=== PATIENT | male | born 2000 | race Asian ===

== ENCOUNTER 2025-03-13 23:06 | Emergency (ER) | payer OTHER, SELFPAY ==
[2025-03-13 23:10] VITALS: BP 144/88
[2025-03-13 23:31] VITALS: BP 112/98
[2025-03-13] MEDS: PEPCID 40 MG PO (23:39)
[2025-03-13] MEDS: DECADRON 10 MG PO (23:39)
[2025-03-13] MEDS: NSS 1000 IV (23:57)
[2025-03-14] VITALS: BP 120/64
--- NOTE | 2025-03-14 00:25 | ED.GENMED ---
History of Present Illness
<Spencer Yu MD - Last Filed: 03/14/25 00:29>
General
Chief Complaint: Allergic Reaction
Time Seen by Provider: 03/13/25 23:22
<Garrick Moncada Jr., PA-C - Last Filed: 03/14/25 02:08>
General
Source: patient
Exam Limitations: none
Nursing documentation reviewed up to this point in time: agreed with
History of Present Illness
History of Present Illness:
24-year-old male presenting to the emergency department today with concerns of allergic reaction after eating pistachios. Took Benadryl as well as an EpiPen with some improvement of symptoms. Still does have ongoing rash denies any trouble
swallowing or breathing
Past History
<Spencer Yu MD - Last Filed: 03/14/25 00:29>
Past History
ED Past Medical History: Asthma
ED Past Surgical History: Other
Social History
Tobacco: Non-smoker
Alcohol: None
Drug: None
Personal: Single
Living: with family
Employment: Employed
Family History
Family History: Other
Review of Systems
<Garrick Moncada Jr., PA-C - Last Filed: 03/14/25 02:08>
Review of Systems
Allergies reviewed?: Yes
All Other Systems: ROS reviewed and negative except as documented in HPI and ROS
Phy Exam
<Garrick Moncada Jr., PA-C - Last Filed: 03/14/25 02:08>
Physical Exam
Physical Exam:
GENERAL: Alert , in no apparent distress
EYE: pupils equal and reactive
NECK: Supple, no significant adenopathy.
ENT: o/p clr, mmm.
CARDIAC: Regular rate and rhythm .
LUNGS: Clear breath sounds bilaterally, no acute respiratory distress, no wheezes/rales/rhonchi
ABDOMEN: Soft, without focal tenderness, no r/g, no cvat
NEUROLOGICAL: Alert and oriented, no focal neuro deficits
SKIN: Scattered hives of the upper extremities chest wall neck and face no involvement of the mucous membranes warm and dry, skin intact.
MUSCULOSKELETAL: No edema, well perfused.
PSYCH: Normal and appropriate interaction.
Course
<Spencer Yu MD - Last Filed: 03/14/25 00:29>
Orders/Labs/Results
Orders:
Orders
03/13/25 23:26
Dexamethasone [Decadron] 10 mg PO NOW STA
Famotidine [Pepcid] 40 mg PO NOW STA
03/13/25 23:35
Famotidine [Pepcid] 20 mg .ROUTE .STK-MED ONE
03/13/25 23:48
Electrocardiogram (*1) Urgent
Reason for Study: Other
Other Reason for Exam: Possible Sepsis
EKG- Treatment ONCE
03/13/25 23:49
0.9% Sodium Chloride 1000 ml [Nss] 1,000 ml IV BOLUS
Vital Signs
Initial and Last Documented VS:
Initial Vital Signs
Temp Pulse Resp BP Pulse Ox
97.4 F 110 22 144/88 98
03/13/25 23:10 03/13/25 23:10 03/13/25 23:10 03/13/25 23:10 03/13/25 23:10
Last Documented Vital Signs
Temp Pulse Resp BP Pulse Ox
97.4 F 86 15 105/61 95
03/13/25 23:10 03/14/25 01:30 03/14/25 01:30 03/14/25 01:00 03/14/25 01:30
<Garrick Moncada Jr., PA-C - Last Filed: 03/14/25 02:08>
Orders/Labs/Results
Orders:
Orders
03/13/25 23:26
Dexamethasone [Decadron] 10 mg PO NOW STA
Famotidine [Pepcid] 40 mg PO NOW STA
03/13/25 23:35
Famotidine [Pepcid] 20 mg .ROUTE .STK-MED ONE
03/13/25 23:48
Electrocardiogram (*1) Urgent
Reason for Study: Other
Other Reason for Exam: Possible Sepsis
EKG- Treatment ONCE
03/13/25 23:49
0.9% Sodium Chloride 1000 ml [Nss] 1,000 ml IV BOLUS
Vital Signs
Initial and Last Documented VS:
Initial Vital Signs
Temp Pulse Resp BP Pulse Ox
97.4 F 110 22 144/88 98
03/13/25 23:10 03/13/25 23:10 03/13/25 23:10 03/13/25 23:10 03/13/25 23:10
Last Documented Vital Signs
Temp Pulse Resp BP Pulse Ox
97.4 F 86 15 105/61 95
03/13/25 23:10 03/14/25 01:30 03/14/25 01:30 03/14/25 01:00 03/14/25 01:30
<Grarick Moncada Jr., PA-C - Last Filed: 03/14/25 02:08>
MDM/Problems Addressed
MDM/Problems Addressed:
24-year-old male presenting to the emergency department today with concerns of allergic reaction potentially to potential pistachios. Patient took Benadryl as well as an EpiPen with some improvement. Here he does have scattered hives no
involvement of mucous membranes. Lungs are clear throat is clear. Initially with significant hives on the chest and arms. This significant improved after 2 hours receiving dexamethasone. Stable for discharge at this time. Return precautions
given.
<Spencer Yu MD - Last Filed: 03/14/25 00:29>
*Pulse Oximetry
SaO2: 96
<Garrick Moncada Jr., PA-C - Last Filed: 03/14/25 02:08>
*Pulse Oximetry
Patient hypoxic: no (95)
*Critical Care Note
Total Time (30-74mins, 75-104mins- exclusive of procedures): Not Applicable
ED Attending Note
<Spencer Yu MD - Last Filed: 03/14/25 00:29>
ED Attending Note
Patient seen and examined by attending physician: Yes
ED Attending Note:
I have seen and evaluated the patient with a [id number] encounter. I have spoken to the advance practicer provider and involved in the medical history, the physical exam, medical decision making.
Evaluation and management service: agree unless noted differently below.
Results interpretation: agree unless noted differently below.
Focused HPI: 24-year-old male with history as noted presents for allergic reaction. He says that he had some pistachios just prior to arrival and shortly thereafter developed hives and some shortness of breath. No vomiting. He gave himself an
EpiPen and took 2 Benadryl and came to the ER.
Physical exam: Awake and alert, mildly anxious. Tachycardic but normotensive. No tachypnea or hypoxia. No wheezing on lung auscultation. He does have diffuse hives on the arms and chest. No swelling of the lips or tongue, no periorbital edema,
no stridor and handling secretions.
Medical Decision Makin-year-old male presents with anaphylaxis. Received EpiPen prehospital and took 2 Benadryl. Will treat with steroids and Pepcid. Monitor very closely with frequent reassessments. Repeat epinephrine as needed for rebound
symptoms.
-
Portions of this chart may have been created with voice recognition software.� Occasional wrong word or��sound alike� substitutions may have occurred due to the inherent limitations of voice recognition software.
Discharge Plan
Departure
Patient Disposition: Home (Routine Discharge)
Date of Disposition: 03/14/25
Time of Disposition: 02:06
Patient with high blood pressure during this ER visit?: No
Condition: Good
Covid-19: Not Applicable
Discharge Problem:
Allergic reaction
Instructions: Hives (DC)
Prescriptions:
New
cetirizine [Zyrtec] 10 mg tablet
10 mg PO BID 4 Days Qty: 8 0RF
prednisone 20 mg tablet
40 mg PO DAILY 4 Days Qty: 8 0RF
famotidine 20 mg tablet
20 mg PO BID 4 Days Qty: 8 0RF
epinephrine [Auvi-Q] 0.3 mg/0.3 mL auto-injector
0.3 mg IM Q5-15M PRN (Reason: anaphylaxis) Qty: 2 0RF
No Action
prednisone 20 MG tablet
20 mg PO DAILY Qty: 3 0RF
Referrals:
Phyllis Romero PA [Family Provider, Family Practice]
Activity Restrictions/Additional Instructions:
You came to the emergency department today with concerns of an allergic reaction. Please take the prescribed medications and follow-up closely with the primary care doctor. Return for any worsening, new or concerning symptoms.
Interventions
Interventions:
*Risk Screen - Suicide Last Done: 03/13/25 23:10
*Neglect/Abuse Screening Last Done: 03/13/25 23:10
*ED- Fall Risk Assessment Last Done: 03/13/25 23:32
*ED COVID-19 Vaccine History Last Done: 03/13/25 23:32
ED- Cardiac Assessment Last Done: 03/13/25 23:32
ED- Pulmonary Assessment Last Done: 03/13/25 23:32
ED-Skin Assessment Last Done: 03/13/25 23:32
Discharge Date and Time
Print Language: GREENLANDIC
[2025-03-14 01:00] VITALS: BP 105/61
[2025-03-14 02:00] VITALS: BP 94/52
== END 2025-03-14 02:17 | disposition home or self-care (01) ==
LOC: EMR 23:06
PROVIDERS: EMERGENCY PHYSICIAN Emergency Medicine; FAMILY PHYSICIAN Physician Assistant Medical
DX: T78.40XA Allergy, unspecified, initial encounter (principal); X58.XXXA Exposure to other specified factors, initial encounter; J45.909 Unspecified asthma, uncomplicated
CPT/HCPCS: 99284; 96360; 93005